=== PATIENT | male | born 1970 | race Caucasian/White ===

== ENCOUNTER 2016-03-16 20:59 | Emergency (ER) | payer OTHER ==
[2016-03-16] MEDS ORDERED: IOPAMIDOL 300 (61%) 150 ML VIAL IV ONE (21:00)
[2016-03-16 21:51] LABS: ABSOLUTE NEUTROPHIL COUNT 4.9 K/mm3 (1.8-7.7); BASO # 0.1 K/mm3 (0.0-0.2); BASO % 1.2 % (0.2-1.0); EOS # 2.3 (0.0-0.5); EOS % 21.9 % (0.9-2.9); HEMATOCRIT 48.3 % (32.0-52.0); HEMOGLOBIN 16.8 gm/l (14.0-18.0); IMM NEUT # 0.1 K/mm3 (0-0.2); IMM NEUT% 0.6 % (0-1); LYMPH # 2.5 (1.0-4.8); MEAN CELL VOLUME 89.1 fl (80.0-94.0); MEAN CORPUSCULAR HGB CONC 34.8 g/dl (33.0-37.0); MEAN PLATELET VOLUME 9.5 fl (7.4-10.4); MONO # 0.6 (0.0-0.8); NEUT % 46.3 % (43-75); PLATELET COUNT 211 K/mm3 (130-400); RED CELL DISTRIBUTION WIDTH 12.1 % (11.5-14.5)
[2016-03-16] MEDS ORDERED: ONDANSETRON 4 MG/2ML 2 ML VIAL ONE (22:08)
[2016-03-16] MEDS ORDERED: HYDROMORPHONE HCL 1 MG/ML SYRINGE ONE (22:09)
[2016-03-16] MEDS ORDERED: PANTOPRAZOLE SODIUM 40 MG VIAL IV ONE (22:09)
[2016-03-16 22:12] LABS: ALB/GLOB RATIO 1.5 (>1.0); ALBUMIN 4.3 gm/dL (3.5-5.7); CALCIUM 9.7 mg/dL (8.6-10.3)
[2016-03-16 22:17] LABS: BAND 0 % (0-10); BASOPHIL 1 % (0-1); EOSINOPHIL 13 % (1-3); LYMPHOCYTE 28 % (15-45); MONOCYTE 4 % (4-12); NEUTROPHILS 54 % (43-75); PLATELET ESTIMATE NORMAL (NORMAL); TOTAL CELLS COUNTED 100
[2016-03-16 22:26] LABS: SPECIFIC GRAVITY 1.015 (1.001-1.030); URINE BILIRUBIN NEGATIVE (NEGATIVE); URINE BLOOD 1+ (NEGATIVE); URINE GLUCOSE (UA) NEGATIVE (NEGATIVE); URINE LEUKOCYTE ESTERASE NEGATIVE (NEGATIVE); URINE NITRITE NEGATIVE (NEGATIVE); URINE PROTEIN NEGATIVE (NEGATIVE); URINE UROBILINOGEN NORMAL (0-1 mg/dl)
[2016-03-16 22:27] LABS: URINE APPEARANCE CLEAR; URINE COLOR YELLOW
--- NOTE | 2016-03-16 22:33 | CT ---
Name: TANVI JACKSON Exam: CT abdomen pelvis with contrast Comparison: None History: Left upper quadrant pain with nausea and diarrhea Procedure: Helical CT using multidetector technique was applied to the abdomen and pelvis during intravenous administration of 125 cc Isovue-300. No oral contrast was given per ordering physician. An automated dose reduction technique was used to minimize patient radiation dose. Findings: CT abdomen (contrast enhanced): Lung bases are clear. Heart is nonenlarged. There is no pericardial effusion. Liver, gallbladder, pancreas, spleen, adrenal glands, kidneys, aorta, IVC, portal vein are normal. There is moderate filling of the stomach with food. Small bowel loops are prominent. Liquid stool is noted within the colon which is not dilated. There is no free air, free fluid or suspicious adenopathy. Advanced multilevel degenerative disc and facet disease is present. CT pelvis (contrast enhanced): The bladder is unremarkable. Seminal vesicles and prostate are normal. Small bowel contains fluid but is not dilated. Colon is not distended. The appendix is a normal structure. Vessels are normal caliber. There is trace free fluid. There is no free air or abscess. Impression: 1. Diffusely prominent small bowel. Enteritis or ileus could have this appearance. Small bowel obstruction is thought unlikely at this time. 2. Liquid stool within the colon. There is no current evidence for colonic dilation or obstruction 3. Trace free fluid within the pelvis 4. Normal appendix 5. No inflammatory stranding or abscess 6. Multilevel degenerative disease of the spine Note: The above report was uploaded to [facility]'s electronic medical records system at 2229 hours.
[2016-03-16 22:45] LABS: URINE BACTERIA 0; URINE EPITHELIAL CELLS 0 /hpf; URINE RBC 0-2 /hpf; URINE WBC NEG /hpf
[2016-03-16] MEDS ORDERED: METRONIDAZOLE 500 MG TABLET ONE (22:58)
[2016-03-16] MEDS ORDERED: CIPROFLOXACIN 500 MG TABLET ONE (22:58)
== END 2016-03-16 23:10 | disposition home or self-care (01) ==
LOC: ED 20:59
DX: A09 Infectious gastroenteritis and colitis, unspecified (principal)

== ENCOUNTER 2016-03-19 17:07 | Emergency (ER) | payer OTHER ==
[2016-03-19] MEDS ORDERED: HYDROMORPHONE HCL 1 MG/ML SYRINGE ONE (17:50)
[2016-03-19] MEDS ORDERED: SODIUM CHLORIDE 0.9% 1,000 ML ONE ×2 (17:50→19:14)
[2016-03-19] MEDS ORDERED: PROMETHAZINE HCL 25 MG/ML VIAL ONE (17:50)
[2016-03-19 18:09] LABS: ABSOLUTE NEUTROPHIL COUNT 4.2 K/mm3 (1.8-7.7); BASO # 0.1 K/mm3 (0.0-0.2); BASO % 1.1 % (0.2-1.0); EOS # 3.7 (0.0-0.5); EOS % 34.5 % (0.9-2.9); HEMATOCRIT 44.3 % (32.0-52.0); HEMOGLOBIN 15.2 gm/l (14.0-18.0); IMM NEUT # 0.1 K/mm3 (0-0.2); IMM NEUT% 0.5 % (0-1); LYMPH # 2.1 (1.0-4.8); LYMPH % 19.3 % (15-45); MEAN CELL VOLUME 90.8 fl (80.0-94.0); MEAN CORPUSCULAR HEMOGLOBIN 31.1 pg (27.0-31.0); MEAN CORPUSCULAR HGB CONC 34.3 g/dl (33.0-37.0); MEAN PLATELET VOLUME 9.7 fl (7.4-10.4); MONO # 0.6 (0.0-0.8); MONO % 5.8 % (4-12); NEUT % 38.8 % (43-75); PLATELET COUNT 169 K/mm3 (130-400); RED CELL DISTRIBUTION WIDTH 12.4 % (11.5-14.5)
[2016-03-19 18:29] LABS: ALB/GLOB RATIO 1.4 (>1.0); ALBUMIN 3.7 gm/dL (3.5-5.7); CALCIUM 8.7 mg/dL (8.6-10.3)
--- NOTE | 2016-03-19 18:31 | RAD ---
Name: TANVI JACKSON Exam: Abdomen Comparison: CT dated 03/16/2016 Clinical history: Persistent abdominal pain Findings: Supine and upright views of the abdomen are submitted. Lung bases are clear. Heart is nonenlarged. There is air in stomach, small bowel and colon. There is no dilated bowel. There is no free intraperitoneal air. There is no suspicious mass or calcification. Impression: Negative two-view abdomen
[2016-03-19 18:51] LABS: URINE BILIRUBIN NEGATIVE (NEGATIVE); URINE BLOOD NEGATIVE (NEGATIVE); URINE GLUCOSE (UA) NEGATIVE (NEGATIVE); URINE LEUKOCYTE ESTERASE NEGATIVE (NEGATIVE); URINE NITRITE NEGATIVE (NEGATIVE); URINE PROTEIN NEGATIVE (NEGATIVE); URINE UROBILINOGEN NORMAL (0-1 mg/dl)
[2016-03-19 18:53] LABS: URINE APPEARANCE CLEAR; URINE COLOR YELLOW
[2016-03-19] MEDS ORDERED: KETOROLAC TROMETHAMINE 30 MG/ML 1 ML VIAL ONE (19:14)
== END 2016-03-19 19:52 | disposition home or self-care (01) ==
LOC: ED 17:07
DX: R10.9 Unspecified abdominal pain (principal); E03.9 Hypothyroidism, unspecified; F32.9 Major depressive disorder, single episode, unspecified; Z79.899 Other long term (current) drug therapy; Z79.891 Long term (current) use of opiate analgesic; Z88.1 Allergy status to other antibiotic agents; Z88.8 Allergy status to other drugs, medicaments and biological substances
CPT/HCPCS: 83690; 85025; 80053; 81003; 74020; 96375 ×2; 99283; 96374; 96361; 99284; J1170; J2550; J1885; J7030 ×2